=== PATIENT | female | born 1965 | race Caucasian/White ===

== ENCOUNTER 2016-06-25 15:59 | Emergency (ER) | payer OTHER ==
--- NOTE | 2016-06-25 17:01 | DIAGNOSTIC IMAGING REPORT ---
PROCEDURE: XR CHEST 2 VIEW INDICATION: COUGH TECHNIQUE: PA and lateral view. COMPARISON: None. FINDINGS: Lungs are clear. Cardiovascular structures are normal. Moderate degenerative changes of the spine. IMPRESSION: 1. Negative chest.
--- NOTE | 2016-06-25 18:58 | ED NURSING NOTES ---
Clinical Report - Nurses [facility] [address] [place] [address] 06/25/2016 16:00 Patient: LATANYA CASTILLO TRIAGE Triage time 16:12. Acuity: LEVEL 3. Chief Complaint: MUSCLE ACHES, FATIGUE, POOR APPETITE and HEADACHE (Heroin withdrawal, N/V). --16:14 Summer Aguila R.N. 16:10 06/25/16. BP: 121/97. HR: 91. RR: 22. O2 saturation: 98%. Temp: 98.8 F. Pain level now: 01/06. Additional comments: "everywhere". --16:14 Summer Aguila R.N. Weight: 90.7 kg stated. Height/Length: 64 inches Per Patient. BMI: 34.3. --16:11 Summer Aguila R.N. Medications None. --16:11 Summer Aguila R.N. Allergies No Known Drug Allergy. --16:11 Summer Aguila R.N. History Arrived by EMS. Historian: patient. The patient has had fever and a cough. Reports muscle aches. ( Left hand pain with swelling, redness, warmth. 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 PAST MEDICAL HX: ( Hx of endocarditis). SOCIAL HX: Current every day smoker. History of heavy IV drug use: heroin. Recently used drugs days ago. (2). No alcohol use. --16:14 Summer Aguila R.N. PROBLEMS: Endocarditis. --16:14 Summer Aguila R.N. Interventions ID band on patient. To treatment room. --16:14 Summer Aguila R.N. PHYSICAL ASSESSMENT GENERAL / NEURO / PSYCH: Alert. Oriented X 4. Appears anxious and in distress. Mood/affect abnormal (anxious). HEENT: No facial asymmetry noted. Mucous membranes are pink. RESPIRATORY: Respirations not labored. Breath sounds within normal limits. GI / : ( pt reports tenderness "all over"). SKIN: ( PT has TNTC old abscess sites on the RUE, R hip. Pt. has erythema, swelling, and hot temperature by touch to the left hand.). Skin breakdown noted. --18:01 Summer Aguila R.N. NURSING PROGRESS NOTES 16:19 06/25/2016 Site #1 started via IV in the right hand with an 20g angiocath, with aseptic technique and good blood return; two attempts. Blood drawn: rainbow set. Labeled in the presence of the patient and sent to the lab. Saline lock flushed with 10 mL saline. --16:29 Carlos Manuel Isbell R.N. 17:01 06/25/2016 Started bag #1 1000 mL IV Fluids IV NS (Saline); at 1000 mL/hr over 1 hour(s) via site #1 --17:01 Summer Aguila R.N. Oxygen administered. Monitoring of patient in place. Patient gowned. Reassurance given. RESPIRATORY: No respiratory distress. Call light placed in reach. Side rails up x 2. Bed placed in lowest position. --17:27 Summer Aguila R.N. ( cath UA accomplished and sent to the lab. kanwal care done.). --17:27 Summer Aguila R.N. 18:36 06/25/2016 Zofran (Ondansetron HCl) IVP 8 mg given over 2 minute(s) via site #1. Allergies verified and confirmed 5 rights. IV patency established. IV site checked: no pain, redness, or swelling. IV flushed thoroughly pre- and post-medication administration. --18:36 Summer Aguila R.N. 18:36 06/25/2016 Clonidine PO Tablets 0.3 mg given. --18:36 Summer Aguila R.N. 18:36 06/25/2016 Bactrim DS (Sulfamethoxazole-TMP DS) PO Tablets 1 tab given. --18:36 Summer Aguila R.N. 18:15 06/25/16. BP: 129/79. HR: 85. RR: 20. O2 saturation: 100%. --18:44 Summer Aguila R.N. 18:00 06/25/16. BP: 146/88. HR: 85. RR: 20. --18:45 Summer Aguila R.N. ( pt given po meds. informed she would be dc soon.). --18:45 Summer Aguila R.N. 17:30- pt. moaning and stating she is in pain, moving around in bed. soiled herself before cath UA, kanwal care done. --18:46 Summer Aguila R.N. 17:53 06/25/2016 IV Fluids IV NS Discontinued: bag #1 infused. Total amount infused: 1000 mL. IV patency established. IV site checked: no pain, redness, or swelling. IV flushed thoroughly. --18:53 Summer Aguila R.N. 18:30. ( Pt had a urine and BM. Helped pt with kanwal care.). --19:07 Karissa Hernandez 19:10 06/25/2016 Site #1 removed upon discharge. Catheter intact. Bandaid applied. --03:25 Parvin Fernandez. DISPOSITION / DISCHARGE 19:07 06/25/16. BP: 124/72. HR: 89. RR: 20. O2 saturation: 100%. Temp: 98.6 F. Pain level now: 02/06. --19:08 Summer Aguila R.N. 19:25 06/25/16. Condition at departure: stable. Ability to learn limited by poor cooperation; teaching performed with the patient. Reviewed medication(s) side effects, precautions, dosing and course information. Prescription(s) given to the patient. Patient verbalized understanding. Written instructions provided in Brazilian. ( Follow up with [facility] for next available appointment. Patients belongings returned to her. Patient given PO food and fluids.). The patient was discharged by the physician. She was discharged home and unaccompanied at time of discharge. She left the Emergency Department ambulatory and via bus and with fare provided. --03:24 Parvin Fernandez. Locked/Released at 06/26/2016 3:26 by Parvin Fernandez,
--- NOTE | 2016-06-25 18:58 | ED NURSING NOTES ---
Clinical Report - Nurses [facility] [address] [place] [address] 06/25/2016 16:00 Patient: LATANYA CASTILLO TRIAGE Triage time 16:12. Acuity: LEVEL 3. Chief Complaint: MUSCLE ACHES, FATIGUE, POOR APPETITE and HEADACHE (Heroin withdrawal, N/V). --16:14 Summer Aguila R.N. 16:10 06/25/16. BP: 121/97. HR: 91. RR: 22. O2 saturation: 98%. Temp: 98.8 F. Pain level now: 01/06. Additional comments: "everywhere". --16:14 Summer Aguila R.N. Weight: 90.7 kg stated. Height/Length: 64 inches Per Patient. BMI: 34.3. --16:11 Summer Aguila R.N. Medications None. --16:11 Summer Aguila R.N. Allergies No Known Drug Allergy. --16:11 Summer Aguila R.N. History Arrived by EMS. Historian: patient. The patient has had fever and a cough. Reports muscle aches. ( Left hand pain with swelling, redness, warmth. 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 PAST MEDICAL HX: ( Hx of endocarditis). SOCIAL HX: Current every day smoker. History of heavy IV drug use: heroin. Recently used drugs days ago. (2). No alcohol use. --16:14 Smumer Aguila R.N. PROBLEMS: Endocarditis. --16:14 Summer Aguila R.N. Interventions ID band on patient. To treatment room. --16:14 Summer Aguila R.N. PHYSICAL ASSESSMENT GENERAL / NEURO / PSYCH: Alert. Oriented X 4. Appears anxious and in distress. Mood/affect abnormal (anxious). HEENT: No facial asymmetry noted. Mucous membranes are pink. RESPIRATORY: Respirations not labored. Breath sounds within normal limits. GI / : ( pt reports tenderness "all over"). SKIN: ( PT has TNTC old abscess sites on the RUE, R hip. Pt. has erythema, swelling, and hot temperature by touch to the left hand.). Skin breakdown noted. --18:01 Summer Aguila R.N. NURSING PROGRESS NOTES 16:19 06/25/2016 Site #1 started via IV in the right hand with an 20g angiocath, with aseptic technique and good blood return; two attempts. Blood drawn: rainbow set. Labeled in the presence of the patient and sent to the lab. Saline lock flushed with 10 mL saline. --16:29 Carlos Manuel Isbell R.N. 17:01 06/25/2016 Started bag #1 1000 mL IV Fluids IV NS (Saline); at 1000 mL/hr over 1 hour(s) via site #1 --17:01 Summer Aguila R.N. Oxygen administered. Monitoring of patient in place. Patient gowned. Reassurance given. RESPIRATORY: No respiratory distress. Call light placed in reach. Side rails up x 2. Bed placed in lowest position. --17:27 Summer Aguila R.N. ( cath UA accomplished and sent to the lab. kanwal care done.). --17:27 Summer Aguila R.N. 18:36 06/25/2016 Zofran (Ondansetron HCl) IVP 8 mg given over 2 minute(s) via site #1. Allergies verified and confirmed 5 rights. IV patency established. IV site checked: no pain, redness, or swelling. IV flushed thoroughly pre- and post-medication administration. --18:36 Summer Aguila R.N. 18:36 06/25/2016 Clonidine PO Tablets 0.3 mg given. --18:36 Summer Aguila R.N. 18:36 06/25/2016 Bactrim DS (Sulfamethoxazole-TMP DS) PO Tablets 1 tab given. --18:36 Summer Aguila R.N. 18:15 06/25/16. BP: 129/79. HR: 85. RR: 20. O2 saturation: 100%. --18:44 Summer Aguila R.N. 18:00 06/25/16. BP: 146/88. HR: 85. RR: 20. --18:45 Summer Aguila R.N. ( pt given po meds. informed she would be dc soon.). --18:45 Summer Aguila R.N. 17:30- pt. moaning and stating she is in pain, moving around in bed. soiled herself before cath UA, kanwal care done. --18:46 Summer Aguila R.N. 17:53 06/25/2016 IV Fluids IV NS Discontinued: bag #1 infused. Total amount infused: 1000 mL. IV patency established. IV site checked: no pain, redness, or swelling. IV flushed thoroughly. --18:53 Summer Aguila R.N. 18:30. ( Pt had a urine and BM. Helped pt with kanwal care.). --19:07 Karissa Hernandez 19:10 06/25/2016 Site #1 removed upon discharge. Catheter intact. Bandaid applied. --03:25 Parvin Fernandez. DISPOSITION / DISCHARGE 19:07 06/25/16. BP: 124/72. HR: 89. RR: 20. O2 saturation: 100%. Temp: 98.6 F. Pain level now: 02/06. --19:08 Summer Aguila R.N. 19:25 06/25/16. Condition at departure: stable. Ability to learn limited by poor cooperation; teaching performed with the patient. Reviewed medication(s) side effects, precautions, dosing and course information. Prescription(s) given to the patient. Patient verbalized understanding. Written instructions provided in Guyanese. ( Follow up with [facility] for next available appointment. Patients belongings returned to her. Patient given PO food and fluids.). The patient was discharged by the physician. She was discharged home and unaccompanied at time of discharge. She left the Emergency Department ambulatory and via bus and with fare provided. --03:24 Parvin Fernandez. Locked/Released at 06/26/2016 3:26 by Parvin Fernandez,
--- NOTE | 2016-06-25 18:58 | ED CLINICAL REPORT ---
Clinical Report - Physicians/Mid Levels [facility] [address] [place] [place] [address] 06/25/2016 16:00 Patient: LATANYA CASTILLO Time Seen: 16:22. Arrived- By private vehicle. Historian- patient. HISTORY OF PRESENT ILLNESS Chief Complaint: VOMITING. This started today and is still present but is better now. No recent travel. She has had nausea and vomiting. No diarrhea, black stools, bloody stools, abdominal pain or constipation. No flank pain, history of possible bad food exposure, known contact with a sick individual or change in routine. Has not recently been camping or on antibiotics. The illness is described as moderate. (Pt has a history of heroin and meth abuse. She states she has had no access to heroin in a week, and feels as though she has been withdrawing. Pt has also had a cough and body aches. Police report that she had been staying at a jew, but that she was now dismissed from there, and police were concerned that she had nowhere to go. As such, they had her sent involuntarily. Pt denies further complaints.). Similar symptoms previously: None. Recent medical care: Not recently seen/assessed. REVIEW OF SYSTEMS No fever, difficulty with urination, dark urine, headache or dizziness. No sore throat, chest pain, difficulty breathing, excessive urination or skin rash. No jaundice, back pain, fainting episodes or blurred vision. The patient has had muscle aches and a cough. Denies current . All systems otherwise negative, except as recorded above. PAST HISTORY Problems: Polysubstance abuse. Endocarditis. Additional Surgeries: no known surgeries. Medications: None. Allergies: No Known Drug Allergy. SOCIAL HISTORY Smoker- current status unknown. History of heavy drug use: heroin, methamphetamines. No alcohol use. ADDITIONAL NOTES The nursing notes have been reviewed. PHYSICAL EXAM Vital Signs: 06/25/2016 16:10 BP: 121/97. HR: 91. RR: 22. O2 saturation: 98%. Temp: 98.8 F. Pain level now: 8/10. Have been reviewed. Appearance: Alert. Oriented X3. No acute distress. Eyes: Pupils equal, round and reactive to light. Eyes normal inspection. ENT: Nose normal. Neck: Normal inspection. Neck supple. CVS: Normal heart rate and rhythm. Heart sounds normal. Pulses normal. Respiratory: No respiratory distress. Breath sounds normal. Abdomen: Soft and nontender. Back: Normal inspection. No CVA tenderness. Skin: Skin warm and dry. No rash. Extremities: Extremities exhibit normal ROM. (PT has erythema, mild tenderness, and mild edema of the dorsum of her L hand. No fluctuance.). Neuro: Oriented X 3. No motor deficit. No sensory deficit. LABS, X-RAYS, AND EKG Chest X-ray: No acute disease. Normal lung markings present. Normal heart size. Mediastinum normal. Great vessels normal. Soft tissues normal. No infiltrate. No fracture. No bony lesion present. Views: PA and lateral. Technique: good. The X-rays were independently viewed by me, interpreted by the radiologist and contemporaneously by me and discussed with the radiologist. Prior films were not available for comparison. Laboratory Tests: UA-Culture if indicated: (KAYLEEN: 06/25/2016 17:25) ( MsgRcvd 06/25/2016 17:49) Final results Test Result Flag Units (Reference) URINE COLOR YELLOW URINE APPEARANCE CLEAR URINE GLUCOSE NEGATIVE (NEGATIVE) URINE BILIRUBIN NEGATIVE (NEGATIVE) URINE KETONE NEGATIVE (NEGATIVE) URINE SPECIFIC GRAVITY 1.015 (1.010-1.030) URINE PH 7.5 (5.0-8.0) URINE PROTEIN NEGATIVE (NEGATIVE) URINE UROBILINOGEN 0.2 EU/dL (0.2-1.0) URINE NITRITE NEGATIVE (NEGATIVE) URINE BLOOD TRACE-INTACT (NEGATIVE) URINE LEUK ESTERASE NEGATIVE (NEGATIVE) URINE RBC 1-3 rbc/hpf (0-1) URINE WBC 1-3 wbc/hpf (0-1) URINE EPITHELIAL CELLS 3-5 EPI/hpf (0-5) URINE BACTERIA TRACE (<1+) (NONE SEEN) URINE COMMENT CULT NOT INDICATED URINE CULTURES ARE SET-UP BASED ON THE FOLLOWING CRITERIA:POSITIVE NITRITEPOSITIVE LEUKOCYTE ESTERASEGREATER THAN 10 WHITE BLOOD CELLSMODERATE (2+) OR GREATER BACTERIA Urine: (KAYLEEN: 06/25/2016 17:25) ( [facility] 06/25/2016 17:46) Final results Test Result Flag Units (Reference) URINE NEGATIVE CBC w Diff: (KAYLEEN: 06/25/2016 17:11) ( [facility] 06/25/2016 19:12) Final results Test Result Flag Units (Reference) WHITE BLOOD COUNT 7.7 K/uL (4.5-11.5) RED BLOOD COUNT 5.33 H M/uL (4.00-5.20) HEMOGLOBIN 9.7 L gm/dL (12.0-16.0) HEMATOCRIT 31.2 L % (36.0-46.0) MEAN CELL VOLUME 59 L fL (80-100) MEAN CORPUSCULAR HGB 18 L pg (26-34) MEAN CORPUSCULAR HGB CONC 31 g/dL (31-37) RED CELL DISTRIBUTION WIDTH 20.8 H % (11.6-14.8) PLATELET COUNT 365 K/uL (150-400) NEUTROPHIL % 60.8 % (50-75) LYMPH % 32.5 % (25-40) MONO % 5.5 % (3-14) EOSINOPHIL % 0.8 % (0-4) BASOPHIL % 0.4 % (0-2) RBC MORPHOLOGY HYPOCHROMASIA 2+~~ANISOCYTOSIS 2+~~TARGET CELLS 1+~~POLYCHROMASIA 1+~~ACANTHOCYTOSIS 1+~~OVALOCYTOSIS 1+ CMP: (KAYLEEN: 06/25/2016 17:11) ( [facility] 06/25/2016 17:40) Final results Test Result Flag Units (Reference) GLUCOSE 104 mg/dL (70-110) BUN 6 L mg/dL (7-18) CREATININE 0.5 L mg/dL (0.6-1.3) Estimated GFR >60 mL/min Estimated GFR- >60 mL/min Note: Persistent reduction over 3 months in eGFR<60 mL/min/1.73 m2 defines CKD. Patients with eGFR values>=60 mL/min/1.73 m2 may also have CKD if evidence ofpersistent proteinuria. Additional information may be foundat www.kidney.org. SODIUM 139 mmol/L (136-145) POTASSIUM 3.9 mmol/L (3.5-5.1) CHLORIDE 104 mmol/L (98-107) CARBON DIOXIDE 24 mmol/L (21-32) CALCIUM 8.4 L mg/dL (8.5-10.1) TOTAL PROTEIN 7.6 g/dL (6.4-8.2) ALBUMIN 3.3 g/dL (3.3-5.0) BILIRUBIN, TOTAL 0.3 mg/dL (0.0-1.0) ALKALINE PHOSPHATASE 100 U/L (46-116) AST (SGOT) 17 U/L (15-37) ALT (SGPT) 19 U/L (12-78) Rapid Influenza Screen: (KAYLEEN: 06/25/2016 17:11) ( MsgRcvd 06/25/2016 17:34) Final results SPECIMEN DESCRIPTION: SWAB Test Result Flag Units (Reference) RAPID INFLUENZA SCREEN DATE: 06/25/16 INFLUENZA A: NEGATIVE SCREEN FOR INFLUENZA A INFLUENZA B: NEGATIVE SCREEN FOR INFLUENZA B . Pulse Oximetry: 06/25/2016 16:10 O2 saturation: 98%. (FIO2 - room air). Interpretation: normal. PROGRESS AND PROCEDURES Course of Care: PT was given IV fluids and Zofran, and worked up for her sx. Work-up was negative. She was given antibiotics for her hand cellulitis, and clonidine for her possible withdrawals (pt had stable vital signs in the ED). No emergent condition was identified. Patient counseled in person regarding the patient's stable condition, test results, diagnosis and need for follow-up. Concerns were addressed. Old medical records reviewed. Disposition: Discharged. Condition: stable and improved. CLINICAL IMPRESSION Vomiting with nausea. Chronic substance abuse- heroin. Acute viral (presumed) rhinitis. No airway obstruction. INSTRUCTIONS Drink plenty of fluids. Warnings: GENERAL WARNINGS: Return or contact your physician immediately if your condition worsens or changes unexpectedly, if not improving as expected, or if other problems arise. Prescription Medications: Zofran ODT 4 mg: take 1-2 orally every 6 hours as needed for nausea. Dispense ten (10). No refill. Substitution is permissible. Understanding of the discharge instructions verbalized by patient. Follow-up with: [facility], , , [address], [facility], [id number] Follow up. Call for the next available appointment. Reason for referral: Establish care. (Electronically signed by Cristy Hoyos MD 07/01/2016 16:33)
--- NOTE | 2016-06-25 18:58 | ED ORDER SUMMARY ---
..... Patient: LATANYA CASTILLO OrderSheet [facility] VisitID: [id number] [address] [place] [address] 50y, F Registration Date/Time: 06/25/2016 ORDER SHEET Weight: 90.7 kg (stated) Allergies: No Known Drug Allergy GENERAL ORDERS: Blood Culture (No) (N/A) Urgent (16:34 06/25/2016 Lachelle MELENDEZ) (Ack 16:40 LTapper) (18:31 SStone R.N.) Chest 2V Urgent (16:34 06/25/2016 Lachelle MELENDEZ) (Ack 16:40 LTapper) (16:48 LTapper) Water Reuse Program Manager (Continuous) (16:34 06/25/2016 Lachelle MELENDEZ) (16:58 SStone R.N.) CBC w Diff Urgent (16:35 06/25/2016 Lachelle MELENDEZ) (Ack 16:40 LTapper) (16:58 SStone R.N.) CMP Urgent (16:35 06/25/2016 Lachelle MELENDEZ) (Ack 16:40 LTapper) (16:58 SStone R.N.) UA-Culture if indicated Urgent (16:35 06/25/2016 Lachelle MELENDEZ) (Ack 16:40 LTapper) (18:31 SStone R.N.) Urine Urgent (16:35 06/25/2016 Lachelle MELENDEZ) (Ack 16:40 LTapper) (18:31 SStone R.N.) Pulse oximeter (16:35 06/25/2016 Lachelle MELENDEZ) (16:58 SStone R.N.) Rapid Influenza Screen (Nasal Pharyngeal) (swab) Urgent (16:39 06/25/2016 Lachelle MELENDEZ) (Ack 16:40 LTapper) (18:31 SStone R.N.) MEDICATION ORDERS: Clonidine PO 0.3 mg (NOW) (18:23 06/25/2016 Lachelle MELENDEZ) (Ack 18:31 SStone R.N.) (18:36 SStone R.N.) Bactrim DS PO (Tablet 800-160 mg) 2 tabs (NOW) (18:24 06/25/2016 Lachelle MELENDEZ) (Ack 18:31 SStone R.N.) (18:36 SStone R.N.) IV FLUIDS: IV Saline Lock (16:29 06/25/2016 Avril R.N. verbal order read back to Lachelle MELENDEZ) (16:29 Avril R.N.) IV NS : initial bolus 1000 mL (1000 mL/hr), then none - (NOW) (16:34 06/25/2016 Lachelle MELENDEZ) (Ack 16:51 SStone R.N.) (17:01 SStone R.N.) Zofran IV 8 mg (NOW) (18:23 06/25/2016 Lachelle MELENDEZ) (Ack 18:31 SStone R.N.) (18:36 SStone R.N.) ORDER SHEET NOTES: [Electronically signed by Parvin Fernandez (03:06/26/2016)] [Electronically signed by Cristy Hoyos MD (16:33 07/01/2016)] [Electronically locked/signed by Parvin Fernandez (03:06/26/2016)]
--- NOTE | 2016-06-25 18:58 | ED CLINICAL REPORT ---
Clinical Report - Physicians/Mid Levels [facility] [address] [place] [address] 06/25/2016 16:00 Patient: LATANYA CASTILLO Time Seen: 16:22. Arrived- By private vehicle. Historian- patient. HISTORY OF PRESENT ILLNESS Chief Complaint: VOMITING. This started today and is still present but is better now. No recent travel. She has had nausea and vomiting. No diarrhea, black stools, bloody stools, abdominal pain or constipation. No flank pain, history of possible bad food exposure, known contact with a sick individual or change in routine. Has not recently been camping or on antibiotics. The illness is described as moderate. (Pt has a history of heroin and meth abuse. She states she has had no access to heroin in a week, and feels as though she has been withdrawing. Pt has also had a cough and body aches. [facility] report that [facility], but that she was now dismissed from there, and police were concerned that she had nowhere to go. As such, they had her sent involuntarily. Pt denies further complaints.). Similar symptoms previously: None. Recent medical care: Not recently seen/assessed. REVIEW OF SYSTEMS No fever, difficulty with urination, dark urine, headache or dizziness. No sore throat, chest pain, difficulty breathing, excessive urination or skin rash. No jaundice, back pain, fainting episodes or blurred vision. The patient has had muscle aches and a cough. Denies current . All systems otherwise negative, except as recorded above. PAST HISTORY Problems: Polysubstance abuse. Endocarditis. Additional Surgeries: no known surgeries. Medications: None. Allergies: No Known Drug Allergy. SOCIAL HISTORY Smoker- current status unknown. History of heavy drug use: heroin, methamphetamines. No alcohol use. ADDITIONAL NOTES The nursing notes have been reviewed. PHYSICAL EXAM Vital Signs: 06/25/2016 16:10 BP: 121/97. HR: 91. RR: 22. O2 saturation: 98%. Temp: 98.8 F. Pain level now: 8/10. Have been reviewed. Appearance: Alert. Oriented X3. No acute distress. Eyes: Pupils equal, round and reactive to light. Eyes normal inspection. ENT: Nose normal. Neck: Normal inspection. Neck supple. CVS: Normal heart rate and rhythm. Heart sounds normal. Pulses normal. Respiratory: No respiratory distress. Breath sounds normal. Abdomen: Soft and nontender. Back: Normal inspection. No CVA tenderness. Skin: Skin warm and dry. No rash. Extremities: Extremities exhibit normal ROM. (PT has erythema, mild tenderness, and mild edema of the dorsum of her L hand. No fluctuance.). Neuro: Oriented X 3. No motor deficit. No sensory deficit. LABS, X-RAYS, AND EKG Chest X-ray: No acute disease. Normal lung markings present. Normal heart size. Mediastinum normal. Great vessels normal. Soft tissues normal. No infiltrate. No fracture. No bony lesion present. Views: PA and lateral. Technique: good. The X-rays were independently viewed by me, interpreted by the radiologist and contemporaneously by me and discussed with the radiologist. Prior films were not available for comparison. Laboratory Tests: UA-Culture if indicated: (KAYLEEN: 06/25/2016 17:25) ( MsgRcvd 06/25/2016 17:49) Final results Test Result Flag Units (Reference) URINE COLOR YELLOW URINE APPEARANCE CLEAR URINE GLUCOSE NEGATIVE (NEGATIVE) URINE BILIRUBIN NEGATIVE (NEGATIVE) URINE KETONE NEGATIVE (NEGATIVE) URINE SPECIFIC GRAVITY 1.015 (1.010-1.030) URINE PH 7.5 (5.0-8.0) URINE PROTEIN NEGATIVE (NEGATIVE) URINE UROBILINOGEN 0.2 EU/dL (0.2-1.0) URINE NITRITE NEGATIVE (NEGATIVE) URINE BLOOD TRACE-INTACT (NEGATIVE) URINE LEUK ESTERASE NEGATIVE (NEGATIVE) URINE RBC 1-3 rbc/hpf (0-1) URINE WBC 1-3 wbc/hpf (0-1) URINE EPITHELIAL CELLS 3-5 EPI/hpf (0-5) URINE BACTERIA TRACE (<1+) (NONE SEEN) URINE COMMENT CULT NOT INDICATED URINE CULTURES ARE SET-UP BASED ON THE FOLLOWING CRITERIA:POSITIVE NITRITEPOSITIVE LEUKOCYTE ESTERASEGREATER THAN 10 WHITE BLOOD CELLSMODERATE (2+) OR GREATER BACTERIA Urine: (KAYLEEN: 06/25/2016 17:25) ( [facility] [place] 17:46) Final results Test Result Flag Units (Reference) URINE NEGATIVE CBC w Diff: (KAYLEEN: 06/25/2016 17:11) ( [facility] [place] 06/25/2016 19:12) Final results Test Result Flag Units (Reference) WHITE BLOOD COUNT 7.7 K/uL (4.5-11.5) RED BLOOD COUNT 5.33 H M/uL (4.00-5.20) HEMOGLOBIN 9.7 L gm/dL (12.0-16.0) HEMATOCRIT 31.2 L % (36.0-46.0) MEAN CELL VOLUME 59 L fL (80-100) MEAN CORPUSCULAR HGB 18 L pg (26-34) MEAN CORPUSCULAR HGB CONC 31 g/dL (31-37) RED CELL DISTRIBUTION WIDTH 20.8 H % (11.6-14.8) PLATELET COUNT 365 K/uL (150-400) NEUTROPHIL % 60.8 % (50-75) LYMPH % 32.5 % (25-40) MONO % 5.5 % (3-14) EOSINOPHIL % 0.8 % (0-4) BASOPHIL % 0.4 % (0-2) RBC MORPHOLOGY HYPOCHROMASIA 2+~~ANISOCYTOSIS 2+~~TARGET CELLS 1+~~POLYCHROMASIA 1+~~ACANTHOCYTOSIS 1+~~OVALOCYTOSIS 1+ CMP: (KAYLEEN: 06/25/2016 17:11) ( [facility] [place] 06/25/2016 17:40) Final results Test Result Flag Units (Reference) GLUCOSE 104 mg/dL (70-110) BUN 6 L mg/dL (7-18) CREATININE 0.5 L mg/dL (0.6-1.3) Estimated GFR >60 mL/min Estimated GFR- >60 mL/min Note: Persistent reduction over 3 months in eGFR<60 mL/min/1.73 m2 defines CKD. Patients with eGFR values>=60 mL/min/1.73 m2 may also have CKD if evidence ofpersistent proteinuria. Additional information may be foundat www.kidney.org. SODIUM 139 mmol/L (136-145) POTASSIUM 3.9 mmol/L (3.5-5.1) CHLORIDE 104 mmol/L (98-107) CARBON DIOXIDE 24 mmol/L (21-32) CALCIUM 8.4 L mg/dL (8.5-10.1) TOTAL PROTEIN 7.6 g/dL (6.4-8.2) ALBUMIN 3.3 g/dL (3.3-5.0) BILIRUBIN, TOTAL 0.3 mg/dL (0.0-1.0) ALKALINE PHOSPHATASE 100 U/L (46-116) AST (SGOT) 17 U/L (15-37) ALT (SGPT) 19 U/L (12-78) Rapid Influenza Screen: (KAYLEEN: 06/25/2016 17:11) ( MsgRcvd 06/25/2016 17:34) Final results SPECIMEN DESCRIPTION: SWAB Test Result Flag Units (Reference) RAPID INFLUENZA SCREEN DATE: 06/25/16 INFLUENZA A: NEGATIVE SCREEN FOR INFLUENZA A INFLUENZA B: NEGATIVE SCREEN FOR INFLUENZA B . Pulse Oximetry: 06/25/2016 16:10 O2 saturation: 98%. (FIO2 - room air). Interpretation: normal. PROGRESS AND PROCEDURES Course of Care: PT was given IV fluids and Zofran, and worked up for her sx. Work-up was negative. She was given antibiotics for her hand cellulitis, and clonidine for her possible withdrawals (pt had stable vital signs in the ED). No emergent condition was identified. Patient counseled in person regarding the patient's stable condition, test results, diagnosis and need for follow-up. Concerns were addressed. Old medical records reviewed. Disposition: Discharged. Condition: stable and improved. CLINICAL IMPRESSION Vomiting with nausea. Chronic substance abuse- heroin. Acute viral (presumed) rhinitis. No airway obstruction. INSTRUCTIONS Drink plenty of fluids. Warnings: GENERAL WARNINGS: Return or contact your physician immediately if your condition worsens or changes unexpectedly, if not improving as expected, or if other problems arise. Prescription Medications: Zofran ODT 4 mg: take 1-2 orally every 6 hours as needed for nausea. Dispense ten (10). No refill. Substitution is permissible. Understanding of the discharge instructions verbalized by patient. Follow-up with: [facility], , , [address], [facility], [address] Follow up. Call for the next available appointment. Reason for referral: Establish care. (Electronically signed by Cristy Hoyos MD 07/01/2016 16:33)
--- NOTE | 2016-06-25 18:58 | ED ORDER SUMMARY ---
..... Patient: LATANYA CASTILLO OrderSheet [facility] VisitID: [id number] [address] [place] [address] 50y, F Registration Date/Time: 06/25/2016 ORDER SHEET Weight: 90.7 kg (stated) Allergies: No Known Drug Allergy GENERAL ORDERS: Blood Culture (No) (N/A) Urgent (16:34 06/25/2016 Lachelle MELENDEZ) (Ack 16:40 LTapper) (18:31 SStone R.N.) Chest 2V Urgent (16:34 06/25/2016 Lachelle MELENDEZ) (Ack 16:40 LTapper) (16:48 LTapper) Book Trimmer (Continuous) (16:34 06/25/2016 Lachelle MELENDEZ) (16:58 SStone R.N.) CBC w Diff Urgent (16:35 06/25/2016 Lachelle MELENDEZ) (Ack 16:40 LTapper) (16:58 SStone R.N.) CMP Urgent (16:35 06/25/2016 Lachelle MELENDEZ) (Ack 16:40 LTapper) (16:58 SStone R.N.) UA-Culture if indicated Urgent (16:35 06/25/2016 Lachelle MELENDEZ) (Ack 16:40 LTapper) (18:31 SStone R.N.) Urine Urgent (16:35 06/25/2016 Lachelle MELENDEZ) (Ack 16:40 LTapper) (18:31 SStone R.N.) Pulse oximeter (16:35 06/25/2016 Lachelle MELENDEZ) (16:58 SStone R.N.) Rapid Influenza Screen (Nasal Pharyngeal) (swab) Urgent (16:39 06/25/2016 Lachelle MELENDEZ) (Ack 16:40 LTapper) (18:31 SStone R.N.) MEDICATION ORDERS: Clonidine PO 0.3 mg (NOW) (18:23 06/25/2016 Lachelle MELENDEZ) (Ack 18:31 SStone R.N.) (18:36 SStone R.N.) Bactrim DS PO (Tablet 800-160 mg) 2 tabs (NOW) (18:24 06/25/2016 Lachelle MELENDEZ) (Ack 18:31 SStone R.N.) (18:36 SStone R.N.) IV FLUIDS: IV Saline Lock (16:29 06/25/2016 Avril R.N. verbal order read back to Lachelle MELENDEZ) (16:29 Avril R.N.) IV NS : initial bolus 1000 mL (1000 mL/hr), then none - (NOW) (16:34 06/25/2016 Lachelle MELENDEZ) (Ack 16:51 SStone R.N.) (17:01 SStone R.N.) Zofran IV 8 mg (NOW) (18:23 06/25/2016 Lachelle MELENDEZ) (Ack 18:31 SStone R.N.) (18:36 SStone R.N.) ORDER SHEET NOTES: [Electronically signed by Parvin Fernandez (03:06/26/2016)] [Electronically signed by Cristy Hoyos MD (16:33 07/01/2016)] [Electronically locked/signed by Parvin Fernandez (03:06/26/2016)]
--- NOTE | 2016-07-01 16:33 | ED DISCHARGE INSTRUCTIONS ---
Patient: LATANYA CASTILLO General Instructions [facility] VisitID: [id number] [address] [place] [address] 50y, F Registration Date/Time: 06/25/2016 Vomiting with nausea. Chronic substance abuse- heroin. Acute viral (presumed) rhinitis. No airway obstruction. INSTRUCTIONS Drink plenty of fluids. Warnings: GENERAL WARNINGS: Return or contact your physician immediately if your condition worsens or changes unexpectedly, if not improving as expected, or if other problems arise. Prescription Medications: Zofran ODT 4 mg: take 1-2 orally every 6 hours as needed for nausea. Dispense ten (10). No refill. Substitution is permissible. Understanding of the discharge instructions verbalized by patient. Follow-up with: [facility], , , [address], , [place], [address] Follow up. Call for the next available appointment. Reason for referral: Establish care. ADDITIONAL INFORMATION Vomiting [6Yr-Adult] Vomiting is a common symptom that may be due to different causes. These include gastroenteritis ("stomach flu"), food poisoning and gastritis. There are other more serious causes of vomiting which may be hard to diagnose early in the illness. Therefore, it is important to watch for the warning signs listed below. The main danger from repeated vomiting is dehydration. This is due to excess loss of water and minerals from the body. When this occurs, body fluids must be replaced. Home Care: If symptoms are severe, rest at home for the next 24 hours. You may use acetaminophen (Tylenol) or ibuprofen (Motrin, Advil) to control fever, unless another medicine was prescribed. [NOTE : If you have chronic liver or kidney disease or ever had a stomach ulcer or GI bleeding, talk with your doctor before using these medicines.] (Aspirin should never be used in anyone under 18 years of age who is ill with a fever. It may cause severe liver damage.) Avoid tobacco and alcohol use, which may worsen your symptoms. If medicines for vomiting were prescribed, take as directed. Once vomiting stops, then follow these guidelines: During The First 12-24 Hours follow the diet below: FRUIT JUICES: Apple, grape juice, clear fruit drinks, and electrolyte replacement drinks. BEVERAGES: Soft drinks without caffeine; mineral water (plain or flavored), decaffeinated tea and coffee. SOUPS: Clear broth, consomm and bouillon DESSERTS: Plain gelatin, popsicles and fruit juice bars. As you feel better, you may add 6-8 ounces of yogurt per day. During The Next 24 Hours you may add the following to the above: Hot cereal, plain toast, bread, rolls, crackers Plain noodles, rice, mashed potatoes, chicken noodle or rice soup Unsweetened canned fruit (avoid pineapple), bananas Limit caffeine and chocolate. No spices or seasonings except salt. During The Next 24 Hours Gradually resume a normal diet, as you feel better and your symptoms lessen. Follow Up with your doctor as advised if you are not improving over the next 2-3 days. Get Prompt Medical Attention if any of the following occur: Constant right-sided lower abdominal pain or increasing general abdominal pain Continued vomiting (unable to keep liquids down) for 24 hours Frequent diarrhea (more than 5 times a day); blood (red or black color) or mucus in diarrhea Reduced urine output or extreme thirst Weakness, dizziness or fainting Unusually drowsy or confused Fever of 100.4F (38C) oral or higher, not better with fever medication Yellow color of the eyes or skin Opiate Abuse Use and abuse of heroin or prescription pain medicines (Vicodin, codeine) may lead to physical ADDICTION or psychological DEPENDENCE. Once this occurs, you are at greater risk for any of the following: - Craving for the drug and unable to stop using the drug even though you think you want to stop (psychological dependence) - Drug withdrawal symptoms if you stop taking the drug (physical addiction) - Loss of your job or your family - Arrest, conviction and care home sentence for possession of an illegal substance or for driving under the influence of such a substance - Accidental injuries to yourself or others while you are under the influence of the drug (in a car or at home). - HIV infection (much greater risk if you use IV drugs) - Other sexually transmitted diseases (Herpes, chlamydia, gonorrhea and others) - Severe and fatal infection of the heart valves (if you use IV drugs) - Stroke, heart attack, hepatitis B or C, kidney failure - from overdose Home Care: 1) Admit you have a drug problem. Ask for help from your family and close friends. 2) Seek professional help. This could be individual psychotherapy, counseling, or a drug treatment program (outpatient or residential). 3) Join a self-help group for drug abuse. 4) Avoid friends who abuse drugs themselves or tempt you to continue your habit 5) Eat a balanced diet and begin a regular exercise program. Follow Up with your doctor or as advised by our staff. Contact one of the resources below for help. [employer] [place] on Alcoholism and Drug Dependence, www.ncadd.org 328-278-SXNO Narcotics Anonymous (check your phone book for a local listing or call 131-673-0145) www.na.org National Alcohol and Substance Abuse Information Center (for referral to treatment programs) Www.AddictionThumbtack 387-505-7575 Get Prompt Medical Attention if any of the following occur: -- Symptoms of withdrawal (agitation, anxiety, trembling, sweats, diarrhea, unable to sleep) -- Chest pain -- Unexplained fever over 100.4 F (38.0 C) -- Excessive drowsiness or inability to be awakened -- Slow breathing under 8 breaths per minute -- Shortness of breath or cough with colored sputum -- Redness, swelling or tenderness at an injection site Viral Respiratory Illness [Adult] You have an Upper Respiratory Illness (URI) caused by a virus. This illness is contagious during the first few days. It is spread through the air by coughing and sneezing or by direct contact (touching the sick person and then touching your own eyes, nose or mouth). Most viral illnesses go away within 7-10 days with rest and simple home remedies. Sometimes, the illness may last for several weeks. Antibiotics will not kill a virus and are generally not prescribed for this condition. Home Care: 1) If symptoms are severe, rest at home for the first 2-3 days. When you resume activity, don't let yourself get too tired. 2) Avoid being exposed to cigarette smoke (yours or others). 3) Tylenol (acetaminophen) or ibuprofen (Advil, Motrin) will help fever, muscle aching and headache. (Persons under 18 with fever should not take aspirin since this may cause liver damage.) 4) Your appetite may be poor, so a light diet is fine. Avoid dehydration by drinking 6-8 glasses of fluids per day (water, soft drinks, juices, tea, soup). Extra fluids will help loosen secretions in the nose and lungs. 5) Aghs-yho-aoipczu cold medicines will not shorten the length of time youre sick, but they may be helpful for the following symptoms: cough (Robitussin DM); sore throat (Chloraseptic lozenges or spray); nasal and sinus congestion (Actifed, Sudafed, Chlortrimeton). Follow Up with your doctor or as advised if you dont improve over the next week. Get Prompt Medical Attention if any of the following occur: -- Cough with lots of colored sputum (mucus) or blood in your sputum -- Chest pain, shortness of breath, wheezing or have trouble breathing -- Severe headache; face, neck or ear pain -- Fever over 100.4 F (38.0 C) for more than three days -- You cant swallow due to throat pain You have been given the following additional information: Vomiting (6Y-Adult) Opiate Abuse Uri, Viral, No Abx (Adult) (Electronically signed by Cristy Hoyos MD 07/01/2016 16:33)
--- NOTE | 2016-07-01 16:33 | ED MAR SUMMARY ---
..... Medication Administration Record [facility] [address] [place] [address] Patient: LATANYA CASTILLO Visit ID: [id number] 50y, F Weight: 90.7 kg Height/Length: 64 in BMI: 34.3 ALLERGIES: No Known Drug Allergy Start 17:01 06/25/2016 Summer Aguila R.N., Stop 17:53 06/25/2016 Summer Aguila R.N. Medication Administered: IV NS (SALINE), Dose: IV Fluids over 1 hour(s), Rate: 1000 mL/hr, Dispensed: 1000 mL bag, Site: #1 right hand. Medication Ordered: IV NS : initial bolus 1000 mL (1000 mL/hr), then none - (NOW). Given 18:36 06/25/2016 Summer Aguila R.N. Medication Administered: ZOFRAN [IVP] (ONDANSETRON HCL), Dose: 8 mg IVP over 2 minute(s), Site: #1 right hand. Medication Ordered: Zofran IV 8 mg (NOW). Given 18:06/25/2016 Summer Agulia R.N. Medication Administered: CLONIDINE [PO], Dose: 0.3 mg Tablets PO. Medication Ordered: Clonidine PO 0.3 mg (NOW). Given 18:36 06/25/2016 Summer Aguila R.N. Medication Administered: BACTRIM DS [PO] (SULFAMETHOXAZOLE-TMP DS), Dose: 1 tab Tablets PO. Medication Ordered: Bactrim DS PO (Tablet 800-160 mg) 2 tabs (NOW).
--- NOTE | 2016-07-01 16:33 | ED MED RECONCILIATION SUMMARY ---
Patient: LATANYA CASTILLO Medication Reconciliation Report [facility] VisitID: [id number] [address] [place] [address] 50y, F Registration Date/Time: 06/25/2016 Weight: 90.7 kg Height/Length: 64 in. BMI: 34.3 ALLERGIES: No Known Drug Allergy The patient's Home Medications are listed below: NONE. The source(s) of the original Home Medication information: Not obtained. The following Medications were given to the patient in the Emergency Department: IV NS IV Fluids bolus 0, then 1000 mL/hr, administered: 06/25/2016 5:01:00 PM Zofran [IVP] IVP 8 mg, administered: 06/25/2016 6:36:00 PM Clonidine [PO] PO 0.3 mg, administered: 06/25/2016 6:36:00 PM Bactrim DS [PO] PO 1 tab, administered: 06/25/2016 6:36:00 PM The following Medications were prescribed to the patient: Zofran ODT 4 mg: take 1-2 orally every 6 hours as needed for nausea. Dispense ten (10). No refill. Substitution is permissible. -- Cristy Hoyos MD
--- NOTE | 2016-07-01 16:33 | ED DISCHARGE INSTRUCTIONS ---
Patient: LATANYA CASTILLO General Instructions [facility] VisitID: [id number] [address] [place] [address] 50y, F Registration Date/Time: 06/25/2016 Vomiting with nausea. Chronic substance abuse- heroin. Acute viral (presumed) rhinitis. No airway obstruction. INSTRUCTIONS Drink plenty of fluids. Warnings: GENERAL WARNINGS: Return or contact your physician immediately if your condition worsens or changes unexpectedly, if not improving as expected, or if other problems arise. Prescription Medications: Zofran ODT 4 mg: take 1-2 orally every 6 hours as needed for nausea. Dispense ten (10). No refill. Substitution is permissible. Understanding of the discharge instructions verbalized by patient. Follow-up with: [facility], , , [address], , [place], [id number] Follow up. Call for the next available appointment. Reason for referral: Establish care. ADDITIONAL INFORMATION Vomiting [6Yr-Adult] Vomiting is a common symptom that may be due to different causes. These include gastroenteritis ("stomach flu"), food poisoning and gastritis. There are other more serious causes of vomiting which may be hard to diagnose early in the illness. Therefore, it is important to watch for the warning signs listed below. The main danger from repeated vomiting is dehydration. This is due to excess loss of water and minerals from the body. When this occurs, body fluids must be replaced. Home Care: If symptoms are severe, rest at home for the next 24 hours. You may use acetaminophen (Tylenol) or ibuprofen (Motrin, Advil) to control fever, unless another medicine was prescribed. [NOTE : If you have chronic liver or kidney disease or ever had a stomach ulcer or GI bleeding, talk with your doctor before using these medicines.] (Aspirin should never be used in anyone under 18 years of age who is ill with a fever. It may cause severe liver damage.) Avoid tobacco and alcohol use, which may worsen your symptoms. If medicines for vomiting were prescribed, take as directed. Once vomiting stops, then follow these guidelines: During The First 12-24 Hours follow the diet below: FRUIT JUICES: Apple, grape juice, clear fruit drinks, and electrolyte replacement drinks. BEVERAGES: Soft drinks without caffeine; mineral water (plain or flavored), decaffeinated tea and coffee. SOUPS: Clear broth, consomm and bouillon DESSERTS: Plain gelatin, popsicles and fruit juice bars. As you feel better, you may add 6-8 ounces of yogurt per day. During The Next 24 Hours you may add the following to the above: Hot cereal, plain toast, bread, rolls, crackers Plain noodles, rice, mashed potatoes, chicken noodle or rice soup Unsweetened canned fruit (avoid pineapple), bananas Limit caffeine and chocolate. No spices or seasonings except salt. During The Next 24 Hours Gradually resume a normal diet, as you feel better and your symptoms lessen. Follow Up with your doctor as advised if you are not improving over the next 2-3 days. Get Prompt Medical Attention if any of the following occur: Constant right-sided lower abdominal pain or increasing general abdominal pain Continued vomiting (unable to keep liquids down) for 24 hours Frequent diarrhea (more than 5 times a day); blood (red or black color) or mucus in diarrhea Reduced urine output or extreme thirst Weakness, dizziness or fainting Unusually drowsy or confused Fever of 100.4F (38C) oral or higher, not better with fever medication Yellow color of the eyes or skin Opiate Abuse Use and abuse of heroin or prescription pain medicines (Vicodin, codeine) may lead to physical ADDICTION or psychological DEPENDENCE. Once this occurs, you are at greater risk for any of the following: - Craving for the drug and unable to stop using the drug even though you think you want to stop (psychological dependence) - Drug withdrawal symptoms if you stop taking the drug (physical addiction) - Loss of your job or your family - Arrest, conviction and chcf sentence for possession of an illegal substance or for driving under the influence of such a substance - Accidental injuries to yourself or others while you are under the influence of the drug (in a car or at home). - HIV infection (much greater risk if you use IV drugs) - Other sexually transmitted diseases (Herpes, chlamydia, gonorrhea and others) - Severe and fatal infection of the heart valves (if you use IV drugs) - Stroke, heart attack, hepatitis B or C, kidney failure - from overdose Home Care: 1) Admit you have a drug problem. Ask for help from your family and close friends. 2) Seek professional help. This could be individual psychotherapy, counseling, or a drug treatment program (outpatient or residential). 3) Join a self-help group for drug abuse. 4) Avoid friends who abuse drugs themselves or tempt you to continue your habit 5) Eat a balanced diet and begin a regular exercise program. Follow Up with your doctor or as advised by our staff. Contact one of the resources below for help. National [place] on Alcoholism and Drug Dependence, www.ncadd.org 004-832-UTUO Narcotics Anonymous (check your phone book for a local listing or call 100-477-6589) www.na.org National Alcohol and Substance Abuse Information Center (for referral to treatment programs) [employer] 935-726-0926 Get Prompt Medical Attention if any of the following occur: -- Symptoms of withdrawal (agitation, anxiety, trembling, sweats, diarrhea, unable to sleep) -- Chest pain -- Unexplained fever over 100.4 F (38.0 C) -- Excessive drowsiness or inability to be awakened -- Slow breathing under 8 breaths per minute -- Shortness of breath or cough with colored sputum -- Redness, swelling or tenderness at an injection site Viral Respiratory Illness [Adult] You have an Upper Respiratory Illness (URI) caused by a virus. This illness is contagious during the first few days. It is spread through the air by coughing and sneezing or by direct contact (touching the sick person and then touching your own eyes, nose or mouth). Most viral illnesses go away within 7-10 days with rest and simple home remedies. Sometimes, the illness may last for several weeks. Antibiotics will not kill a virus and are generally not prescribed for this condition. Home Care: 1) If symptoms are severe, rest at home for the first 2-3 days. When you resume activity, don't let yourself get too tired. 2) Avoid being exposed to cigarette smoke (yours or others). 3) Tylenol (acetaminophen) or ibuprofen (Advil, Motrin) will help fever, muscle aching and headache. (Persons under 18 with fever should not take aspirin since this may cause liver damage.) 4) Your appetite may be poor, so a light diet is fine. Avoid dehydration by drinking 6-8 glasses of fluids per day (water, soft drinks, juices, tea, soup). Extra fluids will help loosen secretions in the nose and lungs. 5) [id number] cold medicines will not shorten the length of time youre sick, but they may be helpful for the following symptoms: cough (Robitussin DM); sore throat (Chloraseptic lozenges or spray); nasal and sinus congestion (Actifed, Sudafed, Chlortrimeton). Follow Up with your doctor or as advised if you dont improve over the next week. Get Prompt Medical Attention if any of the following occur: -- Cough with lots of colored sputum (mucus) or blood in your sputum -- Chest pain, shortness of breath, wheezing or have trouble breathing -- Severe headache; face, neck or ear pain -- Fever over 100.4 F (38.0 C) for more than three days -- You cant swallow due to throat pain You have been given the following additional information: Vomiting (6Y-Adult) Opiate Abuse Uri, Viral, No Abx (Adult) (Electronically signed by Cristy Hoyos MD 07/01/2016 16:33)
--- NOTE | 2016-07-01 16:33 | ED MAR SUMMARY ---
..... Medication Administration Record [facility] [address] [place] [address] Patient: LATANYA CASTILLO Visit ID: [id number] 50y, F Weight: 90.7 kg Height/Length: 64 in BMI: 34.3 ALLERGIES: No Known Drug Allergy Start 17:01 06/25/2016 Summer Aguila R.N., Stop 17:53 06/25/2016 Summer Aguila R.N. Medication Administered: IV NS (SALINE), Dose: IV Fluids over 1 hour(s), Rate: 1000 mL/hr, Dispensed: 1000 mL bag, Site: #1 right hand. Medication Ordered: IV NS : initial bolus 1000 mL (1000 mL/hr), then none - (NOW). Given 18:36 06/25/2016 Summer Aguila R.N. Medication Administered: ZOFRAN [IVP] (ONDANSETRON HCL), Dose: 8 mg IVP over 2 minute(s), Site: #1 right hand. Medication Ordered: Zofran IV 8 mg (NOW). Given 18:06/25/2016 Summer Aguila R.N. Medication Administered: CLONIDINE [PO], Dose: 0.3 mg Tablets PO. Medication Ordered: Clonidine PO 0.3 mg (NOW). Given 18:36 06/25/2016 Summer Aguila R.N. Medication Administered: BACTRIM DS [PO] (SULFAMETHOXAZOLE-TMP DS), Dose: 1 tab Tablets PO. Medication Ordered: Bactrim DS PO (Tablet 800-160 mg) 2 tabs (NOW).
--- NOTE | 2016-07-01 16:33 | ED MED RECONCILIATION SUMMARY ---
Patient: LATANYA CASTILLO Medication Reconciliation Report [facility] VisitID: [id number] [address] [place] [address] 50y, F Registration Date/Time: 06/25/2016 Weight: 90.7 kg Height/Length: 64 in. BMI: 34.3 ALLERGIES: No Known Drug Allergy The patient's Home Medications are listed below: NONE. The source(s) of the original Home Medication information: Not obtained. The following Medications were given to the patient in the Emergency Department: IV NS IV Fluids bolus 0, then 1000 mL/hr, administered: 06/25/2016 5:01:00 PM Zofran [IVP] IVP 8 mg, administered: 06/25/2016 6:36:00 PM Clonidine [PO] PO 0.3 mg, administered: 06/25/2016 6:36:00 PM Bactrim DS [PO] PO 1 tab, administered: 06/25/2016 6:36:00 PM The following Medications were prescribed to the patient: Zofran ODT 4 mg: take 1-2 orally every 6 hours as needed for nausea. Dispense ten (10). No refill. Substitution is permissible. -- Cristy Hoyos MD
== END 2016-06-25 19:20 | disposition home or self-care (01) ==
LOC: ED SRH 15:59
DX: R11.2 Nausea with vomiting, unspecified (principal); F11.10 Opioid abuse, uncomplicated; J00 Acute nasopharyngitis [common cold]; F17.210 Nicotine dependence, cigarettes, uncomplicated
CPT/HCPCS: 81460; 90004; 90065; 90074; 90100; 91400; 93070; 95059